=== PATIENT | female | born 1940 | race Caucasian/White ===

== ENCOUNTER 2022-02-02 09:54 | Outpatient (CLI) | payer OTHER | END 2022-02-02 09:58 | disposition home or self-care (01) | LOC: LAB 09:54 | PROVIDERS: ATTEND Radiology Diagnostic Radiology | DX: C51.9 Malignant neoplasm of vulva, unspecified (principal) ==

== ENCOUNTER 2022-02-16 07:17 | Outpatient (CLI) | payer OTHER | END 2022-02-16 07:24 | disposition home or self-care (01) | LOC: TOM 07:17 | PROVIDERS: ATTEND Specialist | DX: C51.9 Malignant neoplasm of vulva, unspecified (principal) | CPT/HCPCS: 72197; Q9965 ==

== ENCOUNTER 2022-03-28 08:11 | Outpatient (CLI) | payer OTHER | END 2022-03-28 08:12 | disposition home or self-care (01) | LOC: RAD 08:11 | PROVIDERS: ATTEND Specialist | DX: I10 Essential (primary) hypertension (principal); I27.9 Pulmonary heart disease, unspecified ==